=== PATIENT | male | born 1970 | race Caucasian/White ===

== ENCOUNTER 2017-04-10 08:16 | Emergency (ER) | payer BC ==
[2017-04-10] MEDS ORDERED: Diphtheria,Pertussis(Acell),Tetanus Vaccine 0.5 ML SDV IM ONE (08:47)
--- NOTE | 2017-04-10 08:47 | EDM.PDOC ---
ED HPI GENERAL MEDICAL PROBLEM - General Chief Complaint: General Stated Complaint: FISH HOOK; LT POINTER FINGER Time Seen by Provider: 04/10/17 08:34 Source of Information: Reports: Patient, RN Notes Reviewed History Limitations: Reports: No Limitations - History of Present Illness INITIAL COMMENTS - FREE TEXT/NARRATIVE: 46-year-old gentleman presents emergency department today fishhook to index finger left hand this occurred this morning no functional complaints - Related Data Allergies Allergy/AdvReac Type Severity Reaction Status Date / Time No Known Allergies Allergy Verified 04/10/17 08:31 Home Meds: Home Meds NK [No Known Home Meds] 04/10/17 [History] Past Medical History - Past Health History Medical/Surgical History: Denies Medical/Surgical History Social & Family History - Tobacco Use Smoking Status *Q: Never Smoker - Caffeine Use Caffeine Use: Reports: Coffee - Recreational Drug Use Recreational Drug Use: No ED ROS GENERAL - Review of Systems Review Of Systems: See Below Constitutional: Reports: No Symptoms Skin: Reports: Wound Neurological: Reports: No Symptoms ED EXAM, GENERAL - Physical Exam Exam: See Below Free Text/Narrative:: Examination of the left hand radial pulse is +2 full range of motion all digits there is a single barbed hook distal tip of digit #2 left hand Exam Limited By: No Limitations General Appearance: Alert, WD/WN, No Apparent Distress ED GENERAL MEDICAL PROCEDURES - Additional/Other Procedure(s) Other (Free Text) Procedure(s): Preoperative diagnosis fishhook Postoperative diagnosis fishhook removal Surgeon Carlos OfficerMD Verbal consent was obtained prior to procedure risks and benefits were discussed patient is in agreement and wishes to proceed. Anesthesia digital block with 2 mL of lidocaine 0.5% Estimated blood loss minimal Specimens single barbed fishhook Summary procedure: Timeout was performed prior to initiation procedure identified correct site, correct patient and correct procedure. After adequate anesthesia with a digital block performed on digit #2 left hand the hook was backed out with an 18-gauge needle Complications none apparent Disposition unknown tetanus plan to provide Course - Vital Signs Last Recorded V/S: Last Vital Signs Temp 97.5 F 04/10/17 08:26 Pulse 78 04/10/17 08:26 Resp 16 04/10/17 08:26 BP 158/93 H 04/10/17 08:26 Pulse Ox 97 04/10/17 08:26 - Orders/Labs/Meds Orders: Active Orders 24 hr Category Date Time Status Vaccines to be Administered [RC] PER UNIT ROUTINE Care 04/10/17 08:47 Ordered Meds: Medications Discontinued Medications Generic Name Dose Route Start Last Admin Trade Name Brenna PRN Reason Stop Dose Admin Diphtheria/Tetanus/Acell Pertussis 0.5 ml 04/10/17 08:47 04/10/17 08:54 Adacel IM 04/10/17 08:48 0.5 ml .ONCE ONE Administration Lidocaine HCl 5 ml 04/10/17 08:26 04/10/17 08:54 Xylocaine-Mpf 1% INJECT 04/10/17 08:27 5 ml ONETIME ONE Administration Departure - Departure Time of Disposition: 09:00 Disposition: Home, Self-Care 01 Condition: Good Clinical Impression: Fish hook injury of index finger Qualifiers: Encounter type: initial encounter Laterality: left Qualified Code(s): S69.92XA - Unspecified injury of left wrist, hand and finger(s), initial encounter - Discharge Information Instructions: VIS, Diphtheria, Tetanus, and Pertussis (DTaP) - CDC Referrals: PCP,None [Primary Care Provider] - Forms: ED Department Discharge Additional Instructions: Follow-up with primary care as needed, call or return to emergency department worsening of symptoms - My Orders Last 24 Hours: My Active Orders 04/10/17 08:47 Vaccines to be Administered [RC] PER UNIT ROUTINE - Assessment/Plan Last 24 Hours: My Active Orders 04/10/17 08:47 Vaccines to be Administered [RC] PER UNIT ROUTINE Plan: Assessment Acuity = acute Site and laterality = fishhook digit #2 left hand Etiology = single barbed fishhook Manifestations = none Location of injury = Home Lab values = none Plan Follow-up with primary care as needed Patient was in agreement with the plan all questions were answered, they were instructed to return to the emergency department or call for worsening symptoms. This note was dictated using [employer] voice recognition software please call with any questions.
== END 2017-04-10 09:12 | disposition home or self-care (01) ==
LOC: JP.ED 08:16
DX: S60.451A Superficial foreign body of left index finger, initial encounter (principal); W45.8XXA Other foreign body or object entering through skin, initial encounter; Z23 Encounter for immunization
CPT/HCPCS: 64450; 90471; 90715; 99283-25